=== PATIENT | male | born 1950 | race Caucasian/White ===

== ENCOUNTER → 2024-02-13 10:07 | Outpatient (REF) | payer MEDICARE, OTHER, SELFPAY | LOC: HWCARD 10:07 | PROVIDERS: ATTENDING PHYSICIAN Student in an Organized Health Care Education/Training Program; FAMILY PHYSICIAN Nurse Practitioner Adult Health | DX: Z01.818 Encounter for other preprocedural examination (principal) | CPT/HCPCS: 93005 ==

== ENCOUNTER 2024-02-23 06:21 | Day surgery (SDC) | payer MEDICARE, OTHER, SELFPAY ==
[2024-02-23] VITALS (9 sets, daily range): BP systolic 135–166; BP diastolic 71–101; BMI 35.6
[2024-02-23] MEDS: TYLENOL 1000 MG PO (09:51)
[2024-02-23] MEDS: CELEBREX 200 MG PO (09:51)
[2024-02-23] MEDS: VANCOCIN 530 MG IV (10:56)
== END 2024-02-23 15:39 | disposition home or self-care (01) ==
LOC: SDS 06:21
PROVIDERS: ATTENDING PHYSICIAN Student in an Organized Health Care Education/Training Program
DX: M1A.0721 Idiopathic chronic gout, left ankle and foot, with tophus (tophi) (principal); M20.22 Hallux rigidus, left foot
CPT/HCPCS: 28750; 88304; C1713